=== PATIENT | female | born 1980 | race Caucasian/White ===

== ENCOUNTER → 2020-10-04 00:57 | Outpatient (CLI) | payer OTHER, SELFPAY ==
[2020-10-04 19:13] LABS: SARS-CoV-2 RNA PCR Negative
== END ==
PROVIDERS: PCP Physician Assistant; Visit Provider Internal Medicine Gastroenterology
DX: Z01.812 Encounter for preprocedural laboratory examination (principal); Z20.822 Contact with and (suspected) exposure to COVID-19
CPT/HCPCS: C9803; U0003; U0005

== ENCOUNTER 2020-10-07 01:03 | Day surgery (SDC) | payer OTHER, SELFPAY ==
[2020-09-19 12:00] VITALS: BMI 23.7
[2020-10-07 06:47] VITALS: BP 99/80; PULSE 76; RESP 18; TEMP 36.3; O2SAT 99; BMI 23.8
[2020-10-07] MEDS: LACTATED RINGERS 1,000 ML 150 ML IV CONT (06:58)
--- NOTE | 2020-10-07 07:22 | P.PNAN_ITS ---
Anes - Initial Pre Proc Eval Procedure: Operation Date: 10/07/20 08:00 Proposed Procedures p Colonoscopy - Charan Goncalves MD Date/Time: 10/07/20 07:22 Surgeon: Charan Goncalves MD Pre Op Diagnosis: Constipation Patient Data Age: 40 Gender: F Height: 5 ft 10 in Weight: 75.3 kg Last Vital Signs Temp 97.3 F L 10/07/20 06:47 Pulse 76 10/07/20 06:47 Resp 18 10/07/20 06:47 BP 99/80 L 10/07/20 06:47 Pulse Ox 99 10/07/20 06:47 Allergies Allergy/AdvReac Type Severity Reaction Status Date / Time No Known Allergies Allergy Verified 10/07/20 06:45 Home Medications Medication Instructions Recorded Confirmed Type escitalopram oxalate 10 mg PO DAILY 09/19/20 10/07/20 History Patient hx anesthesia problems: none Family hx anesthesia problems: none [facility] Past Medical History Medical History (Updated 08/28/20 @ 10:13 by MINDY Morgan) Anxiety Constipation Depression Social History Social History (Updated 08/28/20 @ 09:46 by Amirah Hill CMA) Smoking status: Never smoker Alcohol intake: current Drinks per week: 7 Alcohol use details: WEEK Substance use: never Substance use type: does not use Living arrangements: with family Gender identity (if verbalized by the patient): Female Spiritual care concerns: No Anes - Eval Final PreProcedure Day of Procedure 10/07/20 07:22 Patient weight: normal Heart: regular rate and rhythm Lungs: clear to auscultation Airway: Mallampati scale class II Neurological: alert and oriented Last oral intake: >/= 8 hours ASA classification: II Emergent: no Anesthetic plan: proceed Anesthesia type and monitoring: general GIVS and standard monitoring Informed Consent: The patient's anesthetic plan and its attendant risks and benefits were discussed with the patient/family/POA. Questions were solicited and answers provided to the satisfaction of the patient/family/POA.
--- NOTE | 2020-10-07 08:09 | PM.HPGS ---
History of Present Illness History of Present Illness Consent: Risks, benefits, and alternatives have been discussed and questions answered. Patient agrees to proceed with procedure. Chief complaint: Constipation Narrative: April Broussard is a 40 year old female with constipation Review of Systems Constitutional: Constitutional: Denies headache(s) and Denies weakness Eyes: Eyes: Denies blurry vision ENT: Reports Normal hearing present, Denies headache(s) and Denies neck pain Cardiovascular: Cardiovascular: Denies chest pain and Denies dyspnea Respiratory: Respiratory: Denies dyspnea Gastrointestinal: Gastrointestinal: Reports no additional gastrointestinal complaints Genitourinary: Genitourinary: Denies dysuria Musculoskeletal: Musculoskeletal: Denies neck pain Integumentary/Breasts: Skin/Breast: Denies dry skin Neurologic: Reports Normal hearing present, Denies headache(s) and Denies weakness Psychiatric: Psychiatric: Denies anxiety Endocrine: Endocrine: Denies change in body appearance Hematologic/Lymphatic: Hematologic/Lymphatic: Denies easy bleeding Allergic/Immunologic: Allergic/Immunologic: Denies urticaria PMF Past Medical History Medical History (Updated 08/28/20 @ 10:13 by HARINDER MorganC) Anxiety Constipation Depression Social History Social History (Updated 08/28/20 @ 09:46 by Amirah Hill CMA) Smoking status: Never smoker Alcohol intake: current Drinks per week: 7 Alcohol use details: WEEK Substance use: never Substance use type: does not use Living arrangements: with family Gender identity (if verbalized by the patient): Female Spiritual care concerns: No Meds Home Medications and Allergies Home Medications Medication Instructions Recorded Confirmed Type escitalopram oxalate 10 mg PO DAILY 09/19/20 10/07/20 History Allergies Allergy/AdvReac Type Severity Reaction Status Date / Time No Known Allergies Allergy Verified 10/07/20 06:45 Vital Signs Vital Signs - 24 hr 10/07/20 06:47 Temperature 97.3 F L Pulse Rate 76 Respiratory Rate 18 Blood Pressure 99/80 L Pulse Oximetry 99 Exam Const: General: comfortable and no acute distress HENMT: General nose exam: Normal nares present Eyes: General: appearance normal, both eyes and all related structures Neck: Neck: no JVD Resp: Auscultation: clear to auscultation bilaterally Cardio: Rate: regular rate Rhythm: regular rhythm GI: Inspection: non-distended GI Palp: Yes Soft to palpation Skin: General skin exam: normal color Neuro: General: gait normal Speech: normal speech Extrem: General: normal to inspection Psych: Mental Status: mental status grossly normal Assessment and Plan Assessment and plan (1) Constipation: Code(s): K59.00 - Constipation, unspecified Status: Acute Assessment and Plan: will proceed with colonoscopy
[2020-10-07 08:29] VITALS: BP 114/67; PULSE 76; RESP 18; O2SAT 100
[2020-10-07 08:39] VITALS: BP 108/70; PULSE 63; RESP 18; O2SAT 100
[2020-10-07 08:49] VITALS: BP 121/80; PULSE 66; RESP 18; O2SAT 100
== END 2020-10-07 09:27 | disposition home or self-care (01) ==
PROVIDERS: PCP Physician Assistant; Visit Provider Internal Medicine Gastroenterology
PROC: 0DJD8ZZ Inspection of Lower Intestinal Tract, Via Natural or Artificial Opening Endoscopic (ICD-10-PCS; CPT 45378; principal; 2020-10-07 08:00)
DX: K59.00 Constipation, unspecified (principal); F41.8 Other specified anxiety disorders
CPT/HCPCS: 45378; C9803; J2704; J7120; U0003; U0005

== ENCOUNTER 2023-12-27 15:44 | Outpatient (CLI) | payer OTHER, SELFPAY ==
--- NOTE | ~2023-12-27 | XR_ITS ---
EXAM: XR hip LT min 2V DATE: 12/27/2023 16:15 HISTORY: PAIN IN HIP, LBP, THORACIC PAIN . COMPARISON: None available. FINDINGS: Normal mineralization. No fracture or dislocation. No lytic or blastic lesion. Joint space s are maintained. Minimal ossification of the labral basis. No erosion or periosteal change. Soft tis sues within normal limits. IMPRESSION: No acute osseous finding in the left hip. Reviewed, dictated and finalized at location K.
--- NOTE | ~2023-12-27 | XR_ITS ---
EXAM: XR lumbar spine 2-3V DATE: 12/27/2023 16:14 HISTORY: PAIN IN HIP, LBP, THORACIC PAIN . COMPARISON: None available. FINDINGS: Mild scoliosis. Unfused posterior S1 arch. 5 nonrib-bearing lumbar-type vertebral bodies. P edicles intact. Normal vertebral body alignment. Vertebral body heights preserved. 2 mm retrolisthesi s at L5-S1. Mild disc space narrowing at L4-5 and L5-S1. Lower lumbar facet hypertrophy and sclerosis . No fracture or dislocation. IMPRESSION: Mild lower lumbar degenerative disc disease and facet arthropathy. Reviewed, dictated and finalized at location K.
--- NOTE | ~2023-12-27 | XR_ITS ---
EXAM: XR thoracic spine 3V DATE: 12/27/2023 16:15 HISTORY: PAIN IN HIP, LBP, THORACIC PAIN . COMPARISON: None available. FINDINGS: Vertebral body alignment intact. Vertebral body heights preserved. No disc space narrowing . No traumatic malalignment or fracture. Visualized lung parenchyma is clear. IMPRESSION: No acute fracture or traumatic malalignment detected in the thoracic spine. Reviewed, dictated and finalized at location K. IMPRESSION: No acute fracture or traumatic malalignment detected in the thoraci c spine.
== END 2023-12-27 15:45 ==
PROVIDERS: PCP Physician Assistant; Visit Provider Physician Assistant
DX: M25.552 Pain in left hip (principal); M51.36 Other intervertebral disc degeneration, lumbar region
CPT/HCPCS: 72072; 72100; 73502

== ENCOUNTER 2024-03-20 12:28 | Emergency (ER) | payer OTHER, SELFPAY ==
[2024-03-20 12:57] VITALS: BP 128/87; PULSE 85; RESP 16; TEMP 36.3; O2SAT 100
--- NOTE | 2024-03-20 13:50 | ED.URI ---
HPI - URI/Sore Throat General Chief Complaint: Upper Respiratory Infection Stated Complaint: Cough/ chest congestion Time Seen by Provider: 03/20/24 13:50 Source: patient, RN notes reviewed and old records reviewed Mode of arrival: ambulatory Limitations: no limitations History of Present Illness HPI Narrative: 44-year-old female to [facility] for complaint of cough, bilateral ear fullness, postnasal drainage for 2 weeks. Patient reports that symptoms are now affecting ability to sleep. Patient has attempted to treat at home with [id number] medications with little relief. Patient denies fever, sore throat, difficulty swallowing shortness of breath, headache, GI complaints. Patient able to tolerate fluids by mouth. Patient resting comfortably in exam room, appears acutely ill and tired. Respirations even and nonlabored. Patient able to speak in complete sentences without difficulty. Patient in no acute distress. Related Data Home Medications Medication Instructions Recorded Confirmed escitalopram oxalate 20 mg tablet 20 mg DIRECTED 03/20/24 03/20/24 Allergies Allergy/AdvReac Type Severity Reaction Status Date / Time No Known Allergies Allergy Verified 10/07/20 06:45 Review of Systems Review of Systems: All systems reviewed & are unremarkable except as noted in HPI and below Constitutional: Constitutional: Reports as per HPI and Reports difficulty sleeping Eyes: Eyes: Reports no additional eye complaints ENT: Reports as per HPI, Reports otalgia ( Bilateral ear fullness) and Reports post nasal drip Cardiovascular: Cardiovascular: Reports no additional cardiovascular complaints, Denies chest pain and Denies dyspnea Respiratory: Respiratory: Reports no additional respiratory complaints, Reports cough and Denies dyspnea Musculoskeletal: Musculoskeletal: Reports no additional musculoskeletal complaints Neurologic: Reports system reviewed and no additional complaints, except as documented Psychiatric: Psychiatric: Reports no additional psychiatric complaints [facility] Past Medical History Medical History Anxiety Bloating Constipation Depression Social History Social History Smoking status: Never smoker Alcohol intake: current Drinks per week: 7 Alcohol use details: WEEK Substance use: never Substance use type: does not use Living arrangements: with family Occupation/Education: occupation Gender identity (if verbalized by the patient): Female Sexual Orientation (if Verbalized by the Patient): Straight or Heterosexual Spiritual care concerns: No Comments At the time of my signature, I reviewed and agree with the nursing past medical, surgical, social, and family history. There is no relevant family history pertinent to the patient complaint. Exam Const: General: cooperative, no acute distress, well developed, alert, ill appearing acutely, tired appearing, uncomfortable, well groomed and well nourished Nutritional Appearance: well nourished Orientation/consciousness: patient oriented x3 Limitations: no limitations HENMT: Head: normal to inspection Ears: external ears normal and TM abnormal with fluid behind the TM bilateral and diffuse Face/Nose/Sinus: Normal external nose present, Abnormal mucous membranes and turbinates present boggy bilateral and erythematous bilateral, normal facial exam, No erythema and No edema Face and sinus: normal facial exam, no erythema and no edema Mouth: Yes Normal oral and palatal mucosa present Throat: posterior oropharynx abnormal erythema and postnasal drainage Eyes: General: appearance normal, both eyes and all related structures Neck: Neck: normal visual inspection, full ROM and no meningeal signs Lymphatic: no lymphadenopathy noted and no lymphedema noted Chest: Chest palpation & inspection: normal inspection
== END 2024-03-20 14:06 | disposition home or self-care (01) ==
PROVIDERS: Emergency Provider Nurse Practitioner Family; PCP Physician Assistant
DX: J32.9 Chronic sinusitis, unspecified (principal); F41.9 Anxiety disorder, unspecified; F32.A Depression, unspecified
CPT/HCPCS: 99213; G0463

== ENCOUNTER 2024-03-23 07:37 | Outpatient (CLI) | payer OTHER, SELFPAY ==
--- NOTE | ~2024-03-23 | XR_ITS ---
EXAMINATION: XR chest 2V 03/23/2024 07:58 INDICATION: Cough PROCEDURE: 2 view chest COMPARISON: No prior studies for comparison. FINDINGS: The lungs are clear. The cardiomediastinal silhouette is within normal limits. There are no pleural effusions. There is no pneumothorax suspected. IMPRESSION: 1: NO ACUTE CARDIOPULMONARY DISEASE. Reviewed, dictated and finalized at location B.
== END 2024-03-23 07:38 | disposition home or self-care (01) ==
PROVIDERS: PCP Physician Assistant; Visit Provider Physician Assistant
DX: R05.9 Cough, unspecified (principal)
CPT/HCPCS: 71046

== ENCOUNTER 2025-01-30 08:41 | Outpatient (CLI) | payer OTHER, SELFPAY ==
--- NOTE | ~2025-01-30 | MM_ITS ---
EXAMINATION: MM screening jessica BI w nate HISTORY: Screening TECHNIQUE: Craniocaudal and mediolateral oblique 3-D tomosynthesis images were obtained and synthetic 2-D images were generated. CAD analysis was submitted and interpreted. COMPARISON: No prior mammogram is available for comparison at this institution. BREAST PARENCHYMAL COMPOSITION: Dense: The breasts are heterogeneously dense, which may obscure small masses FINDINGS: There is no evidence of suspicious mass, calcification, or architectural distortion to sugg est malignancy in either breast. There has been no suspicious interval change. IMPRESSION: 1. No mammographic evidence of malignancy. 2. Recommend routine screening mammography in one year. BI-RADS Category 1: Negative Reviewed, dictated and finalized at location B.
--- OUTSIDE RECORDS SUMMARY | 2025-01-30 08:49 | XMS_ITS | Clinical Summary ---
Author Organization [facility] Address [facility] [place] [address] Care Team Providers Care Sap Bobj Developer Name Role Phone Unavailable Primary Care Provider Unavailabl e Source Comments [facility],non-owned Affiliates and Associated Physician Practices is amultiple site organization consisting of ambulatory clinics and hospital sitesin [place], [place], [place] and [place]. This disclosure is being madepursuant to the Care Everywhere program and may not contain all information available regarding this patient. Last updated 18.[facility] Allergies No known active allergies Medications * Be aware that medications may not be up to date on this document. Alwaysverify current medications with the patient. escitalopram (LEXAPRO) 10 MG tablet Take 10 mg by mouth once daily Active drospirenone-et hinyl estradiol (BERNABE) 3-0.02 MG tablet Take 1 tablet by mouth once daily Active Fexofenadine HCl (SCAR PO) Active Mometasone Furoate (NASONEX NA) Active benzonatate (TESSALON) 200 MG capsuleIndicati ons:Nasopharyng itis acute,Cough Take 1 capsule by mouth 3 times daily as needed for Cough 30 capsule 06/30/2017 Active methylPREDNISol one (MEDROL DOSEPAK) 4 MG tabletIndicatio ns:Nasopharyngi tis acute,Cough Take by mouth as directed Use dose pack of 4mg tabs, start 24 mg/day, taper by 4mg/day over 6 days per pkg instructions. Take with food. 1 Each 06/30/2017 Active Social History Tobacco Use Types Packs/Day Years Used Date Smoking Tobacco: Never Smokeless Tobacco: Never Comments No Sex and Gender Information Value Date Recorded Sex Assigned at Not on file Legal Sex Female 7:27 AM SIGNS CLEANER Gender Identity Not on file Sexual Orientation Not on file Last Filed Vital Signs Vital Sign Reading Time Taken Comments Blood Pressure 100/74 06/30/2017 11:17 AM SIGNS CLEANER Pulse 85 06/30/2017 11:17 AM SIGNS CLEANER Temperature 36.7 C (98 F) 06/30/2017 11:17 AM SIGNS CLEANER Respiratory Rate 16 06/30/2017 11:17 AM SIGNS CLEANER Oxygen Saturation 98% 06/30/2017 11:17 AM SIGNS CLEANER Inhaled Oxygen Concentration - - Weight 72.6 kg (160 lb) 06/30/2017 11:17 AM SIGNS CLEANER Height 177.8 cm (5' 10) 06/30/2017 11:17 AM SIGNS CLEANER Body Mass Index 22.96 06/30/2017 11:17 AM SIGNS CLEANER Plan of Treatment Health Maintenance Due Date Last Done Comments LIPID TESTING 1981 MAMMOGRAM 1981 HIV SCREENING 01/24/1996 HEPATITIS C SCREENING 01/19/1999 DTAP/TDAP/TD VACCINES (1 - Tdap) 01/24/2000 HEPATITIS B VACCINE (1 of 3 - 19+ 3-dose series) 01/24/2000 HPV VACCINE (1 - 3-dose SCDM series) 01/24/2008 COVID-19 VACCINE (1 - 2023-2 5 season) 2024 DEPRESSION SCREENING 07/18/2024 INFLUENZA VACCINE (#1) 2025 ZOSTER VACCINE (1 of 2) 2031 HIB VACCINE Aged Out No longer eligi ble based on patient's age to complete this topic MENINGOCOCCAL (Group B) VACC INE SHARED DECISION-MAKING Aged Out No longer eligibl e based on patient's age to complete this topic MENINGOCOCCAL GROUPS A/C/Y/W VACCINE Aged Out No longer eligible b ased on patient's age to complete this topic PNEUMOCOCCAL VACCINE Aged Out No long er eligible based on patient's age to complete this topic Insurance [facility] Member Subscriber Plan / Payer (Ef fective 2017-Present) Name:April Broussard Relation to Subscriber:Self Name:April Broussard Payer ID:[id number] (NAIC) Type:[facility] [place] Address: [place] [phone]
--- OUTSIDE RECORDS SUMMARY | 2025-01-30 08:49 | XMS_ITS | Clinical Summary ---
Author Organization [facility] Address [address] [place] [id number] Care Team Providers Care Bulk Plant Supervisor Name Role Phone Svetlana Peters Primary Care Pr ovider Allergies No known active allergies Medications escitalopram (LEXAPRO) 20 mg tablet Take 1 tablet (20 mg total) by mouth daily 08/18/2023 Active testosterone micronized, bulk, 100 % powder 2 07/27/2023 Active progesterone (PROMETRIUM) 200 mg capsule Take 1 capsule (200 mg total) by mouth daily Active Active Problems Problem Noted Date Diagnosed Date Rash 05/03/2017 Benign neoplasm of skin of trunk 05/03/2017 Hay fever 01/14/2015 Allergic rhinitis due to pollen 01/14/2015 Family History Medical History Relation Name Comments Colonic polyp Mother Family history of colonic polyps - (Added by TW Conv) Relation Name Status Comments Mother Social History Tobacco Use Types Packs/Day Years Used Date Smoking Tobacco: Never Comments Unknown Sex and Gender Information Value Date Recorded Sex Assigned at Not on file Legal Sex Female 6:26 AM PARACHUTE OFFICER Gender Identity Not on file Sexual Orientation Not on file Obstetrics History Last Filed Vital Signs Vital Sign Reading Time Taken Comments Blood Pressure 117/78 09/07/2023 2:05 PM PARACHUTE OFFICER Pulse 69 09/07/2023 2:05 PM PARACHUTE OFFICER Temperature 36.8 C (98.3 F) 09/07/2023 2:05 PM PARACHUTE OFFICER Respiratory Rate 18 09/07/2023 2:05 PM PARACHUTE OFFICER Oxygen Saturation 97% 09/07/2023 2:05 PM PARACHUTE OFFICER Inhaled Oxygen Concentration - - Weight 80.7 kg (177 lb 14.4 oz) 09/07/2023 2:05 PM PARACHUTE OFFICER Height 177.8 cm (5' 10) 09/07/2023 2:05 PM PARACHUTE OFFICER Body Mass Index 25.53 09/07/2023 2:05 PM PARACHUTE OFFICER Plan of Treatment Health Maintenance Due Date Last Done Comments Breast Cancer Screening-Mammogram 1981 Cervical Cancer Screening 1981 Depression Screening 1981 Hepatitis C Screening 1981 DTaP/Tdap/Td Vaccine (1 - Tdap) 01/24/1992 Varicella Vaccines (1 of 2 - 13+ 2-dose series) 1994 Hepatitis B Screening 1999 Regular Well Visit/Exam 18-64 1999 Covid-19 Vaccine ( season) 2024 06/21/2023, 10/30/2022, 06/24/2021, Additional history exists Influenza Vaccine (#1) 2025 , 05/16/2021, 05/06/2018, Additional history exists HPV Vaccines Aged Out No longer eligi ble based on patient's age to complete this topic Pneumococcal vaccine <65 Aged Out No longer eligible based on patient's age to complete this [place] [id number] [facility] CHOICE PLUS [facility] CHOICE PLUS Care Teams Bulk Plant Supervisor Relationship Specialty Start Date End Date Svetlana Peters PA PCP - General Physician Fisher Quahog 09/07/23
--- OUTSIDE RECORDS SUMMARY | 2025-01-30 08:49 | XMS_ITS | Data Portability ---
Author Organization [facility] Address [address] [place] [address] Care Team Providers Care Bindery Chief Name Role Phone EZIOJUANPABLO GAUTAM Primary Care Provider Unavailab le Assessment No assessment recorded. Plan of Treatment Reminders Order Date Submit Date Provider Last Modified By Organization Details Last Modified Time Details Appointments None recorded. Lab TSH + free T4, serum 2023 024 YADI Montes, [address], [place], [address], 4 15:11:09 T3, free, serum or plasma 2023 024 YADI Montes, [address], [place], [address], 4 15:11:14 thyroperox idase Ab, serum 2023 024 YADI Montes, [address], [place], [address], 4 15:11:13 lipid panel, serum 2023 024 YADI Montes, [address], [place], [address], 4 15:11:09 CMP, serum or plasma 2023 024 YADI Montes, [address], [place], [address], 4 15:11:10 CBC w/ auto diff 2023 024 ANGIE [facility], [address], [place], [address], 4 15:11:12 vitamin B12 + folate, serum or blood 2023 024 [facility], [address], [place], [address], 4 15:11:11 HbA1c (hemoglobi n A1c), blood 2023 024 [facility], [address], [place], [address], 4 15:11:12 Referral None recorded. Procedures None recorded. Surgeries None recorded. Imaging XR, lumbosacra l spine 2023 024 [facility], [address], [place], [address], 4 15:30:45 XR, hip, unilateral , 2 or 3 view 2023 024 [facility], [address], [place], [address], 4 15:30:32 XR, thoracic spine 2023 024 [facility], [address], [place], [address], 4 23:47:58 Medication Orders Zithromax Z-Damon 250 mg tablet 2024 025 [facility] [address], [address] [place], [address], 5 09:53:44 albuterol sulfate HFA 90 mcg/actuat ion aerosol inhaler 2024 025 [facility] [address], [address] [facility], [place], [address], 5 09:53:46 prednisone 20 mg tablet 2024 025 [facility] [address], [address] [facility], [place], [address], 5 05:02:07 hydrocodon e 10 mg-chlorph eniramine 8 mg/5 mL oral susp extend.rel 12hr 2023 024 [email or web address] [address], [place], [address], 5 16:18:53 albuterol sulfate HFA 90 mcg/actuat ion aerosol inhaler 2023 024 [email or web address] [facility] [address], [address] [facility], [place], [address], 5 09:49:22 levofloxac in 500 mg tablet 2023 025 [facility] [address], [address], [place], [address], 5 09:50:54 prednisone 50 mg tablet 2023 024 [facility] [address], [address], [place], [address], 4 15:23:15 cyclobenza harrison 10 mg tablet 2023 024 [facility] [address], [address], [place], [address], 4 15:23:06 hydrocodon e 5 mg-acetami nophen 325 mg tablet 2023 024 [facility] [address], [address], [place], [address], 4 15:42:50 escitalopr am 20 mg tablet 2023 024 [facility] [address], [address], [place], [address], 16:19:00 Patient TargetsNo targets recorded. Patient Instructions Encounter Date Encounter Id Patient Instructions Last Modified By Organization Details Last Modified Time 12/31/2024 [id number] A healthy lifestyle: care instructions [email or web address] Not available 12/31/2024 16:38:26 Reason for Referral None Reported. Results Created Date Observation Date Name Description Value Unit Range Abnormal Flag Note LastModifiedBy Organization Detail LastModifiedTime 12/13/19 24 12/14/2023 LIPID PANEL W/ CHOL/ HDL RATIO cholesterol, total 198 mg/dL 100-19 9 Not Available [facility] ([facility]) [address] [place], [address], 12/14/2023 15:11:09 12/13/19 24 12/14/2023 LIPID PANEL W/ CHOL/ HDL RATIO triglyceride s 122 mg/dL 0-149 Not Available [facility] ([facility]) [address] [place], [address], 12/14/2023 15:11:09 12/13/19 24 12/14/2023 LIPID PANEL W/ CHOL/ HDL RATIO HDL cholesterol 61 mg/dL >39 Not Available [facility] ([facility]) [address] [place], [address], 12/14/2023 15:11:09 12/13/19 24 12/14/2023 LIPID PANEL W/ CHOL/ HDL RATIO VLDL cholesterol annika 22 mg/dL 5-40 Not Available [facility] ([facility]) [address] [place], [address], 12/14/2023 15:11:09 12/13/19 24 12/14/2023 LIPID PANEL W/ CHOL/ HDL RATIO LDL chol calc (nih) 115 mg/dL 0-99 above high normal Not Available [facility] ([facility]) [address] [place], [address], 12/14/2023 15:11:09 12/13/19 24 12/14/2023 LIPID PANEL W/ CHOL/ HDL RATIO T. chol/HDL ratio 3.2 ratio 0.0-4. 4 T. Chol/ HDL Ratio Men Women 1/2 Avg.R isk 3.4 3.3 Avg.R isk 5.0 4.4 2X Avg.R isk 9.6 7.1 3X Avg.R isk 23.4 11.0 Not Available [facility] ([facility]) [address] [place], [address], 12/14/2023 15:11:09 12/13/19 24 12/14/2023 TSH+F REE T4 TSH 2.400 uIU/m L 0.450- 4.500 Not Available [facility] ([facility]) [address] [place], [address], 12/14/2023 15:11:09 12/13/19 24 12/14/2023 TSH+F REE T4 T4,free(dire ct) 0.84 NG/dL 0.82-1 .77 Not Available [facility] ([facility]) [address] [place], [address], 12/14/2023 15:11:09 12/13/19 24 12/14/2023 COMP. METAB OLIC PANEL (14) glucose 106 mg/dL 70-99 above high normal Not Available [facility] ([facility]) [address] [place], [address], 12/14/2023 15:11:10 12/13/19 24 12/14/2023 COMP. METAB OLIC PANEL (14) BUN 9 mg/dL 6-24 Not Available [facility] ([facility]) [address] [place], [address], 12/14/2023 15:11:10 12/13/19 24 12/14/2023 COMP. METAB OLIC PANEL (14) creatinine 0.68 mg/dL 0.57-1 .00 Not Available [facility] ([facility]) [address] [facility], [place], [address], 12/14/2023 15:11:10 12/13/19 24 12/14/2023 COMP. METAB OLIC PANEL (14) eGFR 111 mL/mi n/1.7 3 >59 Not Available [facility] ([facility]) [address] [facility], [place], [address], 12/14/2023 15:11:10 12/13/19 24 12/14/2023 COMP. METAB OLIC PANEL (14) BUN/creatini ne ratio 13 9-23 Not Available [facility] ([facility]) [address] [facility], [place], [address], 12/14/2023 15:11:10 12/13/19 24 12/14/2023 COMP. METAB OLIC PANEL (14) sodium 136 mmol/ L 134-14 4 Not Available [facility] ([facility]) [address] [facility], [place], [address], 12/14/2023 15:11:10 12/13/19 24 12/14/2023 COMP. METAB OLIC PANEL (14) potassium 4.3 mmol/ L 3.5-5. 2 Not Available [facility] ([facility]) [address] [facility], [place], [address], 12/14/2023 15:11:10 12/13/19 24 12/14/2023 COMP. METAB OLIC PANEL (14) chloride 103 mmol/ L 96-106 Not Available [facility] ([facility]) [address] [facility], [place], [address], 12/14/2023 15:11:10 12/13/19 24 12/14/2023 COMP. METAB OLIC PANEL (14) carbon dioxide, total 22 mmol/ L Not Available [facility] ([facility]) [address] [place], [address], 12/14/2023 15:11:10 12/13/19 24 12/14/2023 COMP. METAB OLIC PANEL (14) calcium 8.9 mg/dL 8.7-10 .2 Not Available [facility] ([facility]) [address] [facility], [place], [address], 12/14/2023 15:11:10 12/13/19 24 12/14/2023 COMP. METAB OLIC PANEL (14) protein, total 6.6 g/dL 6.0-8. 5 Not Available [facility] ([facility]) [address] [facility], [place], [address], 12/14/2023 15:11:10 12/13/19 24 12/14/2023 COMP. METAB OLIC PANEL (14) albumin 4.1 g/dL 3.9-4. 9 Not Available [facility] ([facility]) [address] [place], [address], 12/14/2023 15:11:10 12/13/19 24 12/14/2023 COMP. METAB OLIC PANEL (14) globulin, total 2.5 g/dL 1.5-4. 5 Not Available [facility] ([facility]) [address] [place], [address], 12/14/2023 15:11:10 12/13/19 24 12/14/2023 COMP. METAB OLIC PANEL (14) A/G ratio 1.6 1.2-2. 2 Not Available [facility] ([facility]) [address] [place], [address], 12/14/2023 15:11:10 12/13/19 24 12/14/2023 COMP. METAB OLIC PANEL (14) bilirubin, total 0.4 mg/dL 0.0-1. 2 Not Available [facility] ([facility]) [address] [facility] [place], [address], 12/14/2023 15:11:10 12/13/19 24 12/14/2023 COMP. METAB OLIC PANEL (14) alkaline phosphatase 72 IU/L 44-121 Not Available [facility] ([facility]) [address] [facility] [place], [address], 12/14/2023 15:11:10 12/13/19 24 12/14/2023 COMP. METAB OLIC PANEL (14) AST (SGOT) 16 IU/L 0-40 Not Available [facility] ([facility]) [address] [facility] [place], [address], 12/14/2023 15:11:10 12/13/19 24 12/14/2023 COMP. METAB OLIC PANEL (14) ALT (SGPT) 14 IU/L 0-32 Not Available [facility] ([facility]) [address] [facility], [place], [address], 12/14/2023 15:11:10 12/13/19 24 12/14/2023 VITAM IN B12 AND FOLAT E vitamin B12 619 pg/mL 232-12 45 Not Available [facility] ([facility]) [address] [facility] [place], [address], 12/14/2023 15:11:11 12/13/19 24 12/14/2023 VITAM IN B12 AND FOLAT E folate (folic acid), serum 16.2 NG/mL >3.0 A serum folat e lorie ntrat ion of less than 3.1 ng/mL is consi dered to repre sent clini annika defic iency . Not Available [facility] ([facility]) [address] [facility] [place], [address], 12/14/2023 15:11:11 12/13/19 12/14/2023 HEMOG LOBIN A1C hemoglobin A1C 5.2 % 4.8-5. 6 Predi abete s: 5.7 - 6.4 Diabe bettie: >6.4 Glyce alyssa contr ol for adult s with diabe bettie: <7.0 Not Available [facility] ([facility]) [address] [facility], [place], [address], 12/14/2023 15:11:12 12/13/19 24 12/14/2023 CBC WITH DIFFE RENTI AL/PL ATELE T WBC 6.0 x10e3 /uL 3.4-10 .8 Not Available [facility] ([facility]) [address] [place], [address], 12/14/2023 15:11:12 12/13/19 24 12/14/2023 CBC WITH DIFFE RENTI AL/PL ATELE T RBC 4.66 x10e6 /uL 3.77-5 .28 Not Available [facility] ([facility]) [address] [facility], [place], [address], 12/14/2023 15:11:12 12/13/19 24 12/14/2023 CBC WITH DIFFE RENTI AL/PL ATELE T hemoglobin 13.3 g/dL 11.1-1 5.9 Not Available [facility] ([facility]) [address] [place], [address], 12/14/2023 15:11:12 12/13/19 24 12/14/2023 CBC WITH DIFFE RENTI AL/PL ATELE T hematocrit 41.5 % 34.0-4 6.6 Not Available [facility] ([facility]) [address] [place], [address], 12/14/2023 15:11:12 12/13/19 24 12/14/2023 CBC WITH DIFFE RENTI AL/PL ATELE T MCV 89 fL 79-97 Not Available [facility] ([facility]) [address] [place], [address], 12/14/2023 15:11:12 12/13/19 24 12/14/2023 CBC WITH DIFFE RENTI AL/PL ATELE T MCH 28.5 pg 26.6-3 3.0 Not Available [facility] ([facility]) [address] [facility], [place], [address], 12/14/2023 15:11:12 12/13/19 24 12/14/2023 CBC WITH DIFFE RENTI AL/PL ATELE T MCHC 32.0 g/dL 31.5-3 5.7 Not Available [facility] ([facility]) [address] [facility], [place], [address], 12/14/2023 15:11:12 12/13/19 24 12/14/2023 CBC WITH DIFFE RENTI AL/PL ATELE T RDW 12.7 % 11.7-1 5.4 Not Available [facility] ([facility]) [address] [facility], [place], [address], 12/14/2023 15:11:12 12/13/19 24 12/14/2023 CBC WITH DIFFE RENTI AL/PL ATELE T platelets 200 x10e3 /uL 150-45 0 Not Available [facility] ([facility]) [address] [facility], [place], [address], 12/14/2023 15:11:12 12/13/19 24 12/14/2023 CBC WITH DIFFE RENTI AL/PL ATELE T neutrophils 54 % notest ab. Not Available [facility] ([facility]) [address] [facility], [place], [address], 12/14/2023 15:11:12 12/13/19 24 12/14/2023 CBC WITH DIFFE RENTI AL/PL ATELE T lymphs 38 % notest ab. Not Available [facility] ([facility]) [address] [place], [address], 12/14/2023 15:11:12 12/13/19 24 12/14/2023 CBC WITH DIFFE RENTI AL/PL ATELE T monocytes 6 % notest ab. Not Available [facility] ([facility]) [address] [facility], [place], [address], 12/14/2023 15:11:12 12/13/19 24 12/14/2023 CBC WITH DIFFE RENTI AL/PL ATELE T eos 1 % notest ab. Not Available [facility] ([facility]) [address] [facility], [place], [address], 12/14/2023 15:11:12 12/13/19 24 12/14/2023 CBC WITH DIFFE RENTI AL/PL ATELE T basos 1 % notest ab. Not Available [facility] ([facility]) [address] [facility], [place], [address], 12/14/2023 15:11:12 12/13/19 24 12/14/2023 CBC WITH DIFFE RENTI AL/PL ATELE T neutrophils (absolute) 3.3 x10e3 /uL 1.4-7. 0 Not Available [facility] ([facility]) [address] [facility], [place], [address], 12/14/2023 15:11:12 12/13/19 24 12/14/2023 CBC WITH DIFFE RENTI AL/PL ATELE T lymphs (absolute) 2.3 x10e3 /uL 0.7-3. 1 Not Available [facility] ([facility]) [address] [facility], [place], [address], 12/14/2023 15:11:12 12/13/19 24 12/14/2023 CBC WITH DIFFE RENTI AL/PL ATELE T monocytes(ab solute) 0.3 x10e3 /uL 0.1-0. 9 Not Available [facility] ([facility]) [address] [facility], [place], [address], 12/14/2023 15:11:12 12/13/19 24 12/14/2023 CBC WITH DIFFE RENTI AL/PL ATELE T eos (absolute) 0.1 x10e3 /uL 0.0-0. 4 Not Available [facility] ([facility]) [address] [facility], [place], [address], 12/14/2023 15:11:12 12/13/19 24 12/14/2023 CBC WITH DIFFE RENTI AL/PL ATELE T baso (absolute) 0.0 x10e3 /uL 0.0-0. 2 Not Available [facility] ([facility]) [address] [facility], [place], [address], 12/14/2023 15:11:12 12/13/19 24 12/14/2023 CBC WITH DIFFE RENTI AL/PL ATELE T immature granulocytes 0 % notest ab. Not Available [facility] ([facility]) [address] [facility], [place], [address], 12/14/2023 15:11:12 12/13/19 24 12/14/2023 CBC WITH DIFFE RENTI AL/PL ATELE T immature grans (abs) 0.0 x10e3 /uL 0.0-0. 1 Not Available [facility] ([facility]) [address] [facility], [place], [address], 12/14/2023 15:11:12 12/13/19 24 12/14/2023 THYRO ID ANTIB ODIES thyroid peroxidase (tpo) Ab <9 IU/mL 0-34 Not Available [facility] ([facility]) [address] [place], [address], 12/14/2023 15:11:13 12/13/19 24 12/14/2023 THYRO ID ANTIB ODIES thyroglobuli n antibody <1.0 IU/mL 0.0-0. 9 Thyro globu paradise Antib yanci measu red by Eliazar chi Coult er Metho dolog y It shoul d be noted that the prese nce of thyro globu paradise antib odies may not be patho genic nor diagn ostic , espec ially at very low level s. The assay toby actur er has found that four perce nt of indiv idual s witho ut evide nce of thyro id disea se or autoi mmuni ty will have posit yanet TgAb level s up to 4 IU/mL . Not Available [facility] ([facility]) [address] [facility], [place], [address], 12/14/2023 15:11:13 12/13/19 24 12/14/2023 TRIIO DOTHY MARLA E (T3), FREE triiodothyro nine (T3), free 2.8 pg/mL 2.0-4. 4 Not Available [facility] ([facility]) [address] [facility], [place], [address], 12/14/2023 15:11:14 12/28/19 24 12/27/2023 XR, thora cic spine No observ ation record ed. YADI [facility] [address], [place], [address], 01/03/2024 15:29:47 03/23/20 24 03/23/2024 XR, chest , 2 view No observ ation record ed. [email or web address] [facility] [address], [place], [address], 04/02/2024 16:15:29 Result Notes None recorded. Problems Name Problem SNOMED Code Status Onset Date Resolution Date Notes Provider Name and Address Organization Details Recorded Time Mixed anxiety and depressive disorder 248115423 Active 024 EVELIN Ortega Attn: [address] [facility] [address], [place], [address] , [facility] - [facility] 00:43:26 Body mass index 20-24 - normal 016091182 Active 025 EVELIN Ortega Attn: [address], [place], [address], [facility] 5 11:58:28 Long-term drug therapy Active 025 EVELIN Ortega Attn: [address], [place], [address], [facility] 5 09:50:28 Family history of cancer of colon 550042584 Active 025 EVELIN Ortega Attn: [address] [facility], [place], [address], [facility] 5 11:58:22 Problem Notes None recorded. Procedures Surgical History Date Name Laterality Status Provider Name and Address Organization Details Recorded Time section completed Shady Allison MA [facility] 11/17/2023 11:57:53 Imaging Results None recorded. Procedure Notes None recorded. Medical Equipment None Reported. Allergies No known drug allergies Medications Name Sig Start Date Stop Date Status Note LastModified by Organization Details LastModified Time cyclobenz aprine 10 mg tablet TAKE 1 TABLET BY MOUTH THREE TIMES DAILY NEEDED 04/02 completed Not Available Not Available Not Available azithromy paco 250 mg tablet TAKE 2 TABLETS BY MOUTH ON DAY 1, AND THEN TAKE 1 TABLET BY MOUTH ONCE A DAY ON DAY 2 THROUGH DAY 5 01/21 completed Not Available Not Available Not Available hydrocodo ne 5 mg-acetam inophen 325 mg tablet TAKE 1 TABLET BY MOUTH EVERY 6 HOURS NEEDED FOR ACUTE BACK PAIN 04/02 completed Not Available Not Available Not Available prednison e 20 mg tablet Take 2 tablets every day by oral route for 5 days. 01/12 completed Not Available Not Available Not Available ciproflox acin 500 mg tablet TAKE 1 TABLET BY MOUTH EVERY 12 HOURS 11/16 completed Not Available Not Available Not Available amoxicill in 875 mg tablet TAKE 1 TABLET BY MOUTH EVERY 12 HOURS 04/02 completed pt finished on tuesday Not Available Not Available Not Available prednison e 50 mg tablet Take 1 tablet every day by oral route for 5 days. 04/02 completed Not Available Not Available Not Available levofloxa paco 500 mg tablet TAKE 1 TABLET BY MOUTH EVERY 24 HOURS WITH A MEAL 01/21 completed Not Available Not Available Not Available hydrocodo ne 10 mg-chlorp heniramin e 8 mg/5 mL oral susp extend.re l 12hr TAKE 5 ML BY MOUTH EVERY 12 HOURS NEEDED FOR COUGH 12/31 completed Not Available Not Available Not Available albuterol sulfate HFA 90 mcg/actua tion aerosol inhaler INHALE 2 PUFFS BY MOUTH EVERY 4 TO 6 HOURS NEEDED 01/21 completed Not Available Not Available Not Available progester one micronize d 100 mg capsule TAKE 1 CAPSULE BY MOUTH NIGHTLY active Not Available Not Available No t Available escitalop fidelia 20 mg tablet Take 1 tablet every day by oral route for 90 days. active Not Available Not Available No t Available testoster one active cream Not Available Not Available Not Available progester one 75mg daily 04/02 completed Not Available Not Available Not Available semagluti de (weight loss) 0.25 mg/0.5 mL subcutane ous pen injector Inject by subcutan eous route. active Not Available Not Available No t Available Vitals Date Recorded Systolic And Diastolic Provider Name and Address Organization Details Last Updated DateTime 11/17/2023 108/80 mm[Hg] EVELIN Ortega Attn: [address] [place], [address], [facility] 11/17/2023 11:38:02 Date Recorded Body height Body mass index (BMI) Body weight Respiratory rate Oxygen saturation Oxygen saturation in Arterial blood by Pulse oximetry Heart rate Provider Name and Address Organization Details Last Updated DateTime 4 180.34 cm 25.1 kg/m2 73157.6 3 g 18 /min 97 % 97 % 85 /min Shady Allison MA [facility] 11:10:20 Date Recorded Body height Body mass index (BMI) Body weight Respiratory rate Oxygen saturation Oxygen saturation in Arterial blood by Pulse oximetry Heart rate Systolic And Diastolic Provider Name and Address Organization Details Last Updated DateTime 4 180.34 cm 25.2 kg/m2 64521.4 2 g 18 /min 99 % 99 % 66 /min 118/82 mm[Hg] Shady Allison MA [facility] 4 15:58:12 Date Recorded Systolic And Diastolic Provider Name and Address Organization Details Last Updated DateTime 12/31/2024 110/80 mm[Hg] EVELIN Ortega Attn: [address] [place], [address], [facility] 12/31/2024 16:38:36 Date Recorded Body height Oxygen saturation Oxygen saturation in Arterial blood by Pulse oximetry Heart rate Body mass index (BMI) Body weight Body temperature Systolic And Diastolic Provider Name and Address Organization Details Last Updated DateTime 5 180.34 cm 97 % 97 % 75 /min 24.5 kg/m2 00056.2 6 g 98.3 [degF] 122/82 mm[Hg] Shady Allison MA [facility] 5 16:22:37 Date Recorded Systolic And Diastolic Provider Name and Address Organization Details Last Updated DateTime 01/21/2025 110/74 mm[Hg] EVELIN Ortega Attn: [address] [place], [address], [facility] 01/21/2025 11:58:39 Date Recorded Body height Body mass index (BMI) Body weight Respiratory rate Oxygen saturation Oxygen saturation in Arterial blood by Pulse oximetry Heart rate Systolic And Diastolic Provider Name and Address Organization Details Last Updated DateTime 5 180.34 cm 23.2 kg/m2 07669.3 3 g 18 /min 97 % 97 % 67 /min 122/80 mm[Hg] Shady Allison MA [facility] 5 11:36:55 Date Recorded Body height Body mass index (BMI) Body weight Respiratory rate Oxygen saturation Oxygen saturation in Arterial blood by Pulse oximetry Heart rate Systolic And Diastolic Provider Name and Address Organization Details Last Updated DateTime 4 180.34 cm 25.9 kg/m2 32254.0 3 g 18 /min 98 % 98 % 74 /min 126/88 mm[Hg] Shady Allison MA [facility] 4 15:24:57 Social History Question Answer Notes LastModified by Organizat ion Details LastModified Time Tobacco Smoking Status Never Smoker Shady Allison MA [facility] [place] [facility] 11/17/2023 11:09:05 Do You Have An Advance Directive? No Information not available 12/31/2024 Are You Blind Or Do You Have Difficulty Seeing? No CONTACTS/ GLASSES Information not available 11/17/2023 What Is Your Level Of Caffeine Consumption? Moderate Information not available 11/17/2023 In The 14 Days Before Symptom Onset, Have You Had Close Contact With A Laboratory-confir med COVID-19 While That Case Was Ill? No Information not available 11/15/2023 In The 14 Days Before Symptom Onset, Have You Had Close Contact With A Person Who Is Under Investigation For COVID-19 While That Person Was Ill? No Information not available 11/15/2023 Have You Been To An Area Known To Be High Risk For COVID-19? No Information not available 11/15/2023 Are You Deaf Or Do You Have Serious Difficulty Hearing? No Information not available 11/17/2023 What Type Of Diet Are You Following? REGULAR Information not available 11/17/2023 Are There Any Guns Present In Your Home? No Information not available 11/15/2023 What Was The Date Of Your Most Recent Tobacco Screening? 01/21/2025 Information not available 01/21/2025 What Is Your Relationship Status? Information not available 11/17/2023 Do You Use Your Seat Belt Or Car Seat Routinely? Yes Information not available 11/15/2023 Do You Have Smoke And Carbon Monoxide Detectors In Your Home? No Information not available 11/15/2023 Do You Use Sunscreen Routinely? No Information not available 11/15/2023 Has Tobacco Cessation Counseling Been Provided? Yes Information not available 11/15/2023 On What Date Was Tobacco Cessation Counseling Provided? 01/21/2025 Information not available 01/21/2025 Sex: Female Functional Status Question Answer Note LastModified by Organizat ion Details LastModified Time Do you use any illicit or recreational drugs? No Information not available 11/17/2023 Do you or have you ever used any other forms of tobacco or nicotine? No Information not available 11/17/2023 What is your level of alcohol consumption? Occasional Information not available 11/17/2023 Are you currently employed? Yes Information not available 11/17/2023 Are you able to care for yourself? 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 Moderate Information not available 11/17/2023 Mental Status None recorded. Family History Relationship Description Onset Age of this Age Resolved Age Notes LastModified by Organization Details LastModified Time Mother Hypertensive disorder tcarterma Not available 2023 11:58:01 Medical History Condition Response Coronary Artery Disease N Other N High Blood Pressure N Atrial Fibrillation N Kidney or Bladder Problems N Thyroid Problems N GI Problems Y Depression Y COPD N Blood Clots N Skin Problems N Anemia N Heart Attack (NE) N Anxiety Disorder Y Diabetes N Muscle, Joint, or Bone Problems N Seizures/Epilepsy N Acid Reflux (GERD) N Cancer N Stroke N Asthma N Allergies Y High Cholesterol N Hepatitis N Liver Disease N Headaches N Osteoporosis N Heart Failure N Gynecological History Statement/Question Response Flow Heavy Date of LMP 01/08/2025 Menses Monthly Y Duration of Flow (days) 5 Current Control Method None LMP Definite Obstetrics History GPAL:G 2 P 2 0 0 2 Type Value Full Term 2 Induced 0 Spontaneous 0 Premature 0 Living 2 Total 2 Immunizations Vaccine Type Date Status Note Provider Nam e and Address Organization Details Recorded Time COVID-19, mRNA, LNP-S, PF, 30 mcg/0.3 mL dose 09/30/2020 completed Shady Allison MA null, [place] - [facility] 05/09/2024 08:54:20 COVID-19, mRNA, LNP-S, PF, 30 mcg/0.3 mL dose 10/26/2020 completed Shady Allison [place] [facility] 05/09/2024 08:54:20 COVID-19, mRNA, LNP-S, PF, 30 mcg/0.3 mL dose 06/24/2021 completed JAMES [place] [facility] 05/09/2024 08:54:20 COVID-19, mRNA, LNP-S, bivalent, PF, 30 mcg/0.3 mL dose 10/30/2022 [place] [facility] 05/09/2024 08:54:20 COVID-19, mRNA, LNP-S, PF, 50 mcg/0.5 mL 06/21/2023 [place] [facility] 05/09/2024 08:54:20 IG 10/25/2012 [place] [facility] 05/09/2024 08:54:20 Influenza, split virus, trivalent, PF 04/27/2015 [place] [facility] 05/09/2024 08:54:20 Influenza, split virus, quadrivalent, PF 05/06/2018 [place] [facility] 05/09/2024 08:54:20 Influenza, split virus, quadrivalent, PF 05/16/2021 [place] [facility] 05/09/2024 08:54:20 Influenza, split virus, quadrivalent, PF 06/21/2023 [place] [facility] 05/09/2024 08:54:20 influenza, unspecified formulation 05/08/2024 [place] [facility] 05/09/2024 08:55:24 COVID-19, mRNA, LNP-S, PF, 50 mcg/0.5 mL 05/08/2024 completed [place] [facility] 05/09/2024 08:57:24 Past Encounters Encounter ID Performer Location Encounter Start Date Encounter Closed Date Diagnosis/Indication Diagnosis SNOMED-CT Code Diagnosis ICD10 Code Diagnosis Note [id number] Jeremy Garcia MD [facility] e - [place] [address] [place] [address] 11/17/2023 10:58:48 11/17/2023 12:54:08 Adult health examination 630239644 Z00.01 annual wellness completed. labs ordered fasting. 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 pleased with stability . med refilled. [id number] Jeremy Garcia MD [facility] [employer] [employer] [address] [place] [email or web address] [id number] 12/27/2023 15:38:35 12/27/2023 16:48:31 Acute thoracic back pain 714398792 M54.6 check xray tspine. Acute low back pain 2788 19729 M54.50 check xray LS spine. start prednisone 50mg daily x 5 days. start flexeril 10mg tid prn and PRN norco given. if this persists, P.T. will be needed and possibly MRI Pain of le ft hip joint 8708720718 41453 M25.552 check xray left hip [id number] Jeremy Garcia MD [facility] [employer] [address] [place] [address] 04/02/2024 15:13:50 04/02/2024 16:02:49 Acute bronchitis 35152432 J20.9 Start Levaquin 500 mg daily x7 days Cough 54864924 R05.9 Prescripti on for generic Tussionex cough syrup 1 tsp every 12 hours for persistent aggressive cough also add albuterol HFA inhaler to use as directed [id number] Jeermy Garcia MD [facility] [employer] [address] [employer] [address] 12/31/2024 16:13:18 12/31/2024 16:54:35 Body mass index 20-24 - normal 433029835 Z68.24 Acute bronchitis 5961118 2 J20.9 Start Z-Damon and prednisone 40 mg daily for 5 days and albuterol inhaler [id number] Jeremy Garcia MD [facility] [employer] [address] [place] [address] 01/21/2025 11:32:01 01/21/2025 12:32:35 Adult health examination 439441110 Z00.01 annual wellness completed. labs ordered fasting. Mixed anxi ety and depressive disorder 251844145 F41.8 very stable on SSRI therapy. Lexapro 20 mg daily. Pleased with stability . med refilled. Cholesterol screening 27 5761228 Z13.220 Diabetes m ellitus screening 293817956 Z13.1 Thyroid di sorder screening 952884436 Z13.29 Long-term drug therapy 802438991 Z79.899 Body mass index 20-24 - normal 526752271 Z68.23 Screening mammography 24 252057 Z12.31 Family his tory of cancer of colon 073294047 Z80.0 October 07, 2020 last colonoscop y repeat 5 years Health Concerns Section Related Observation LastModified by Organization Detai ls LastModified Time None Recorded Concern Status LastModified by Organization Details LastModified Time None Recorded Advance Directives Directive N: Payers Insurance Date Sequence Insurance Name Policy Number Policy Estrada Covered Member ID Estrada Member ID Guarantor Name 01/18/2025 [id number] Ilya Broussard [id number] April Broussard 03/20/2024 1 [facility] April Broussard [id number] April Broussard 11/17/2023 1 *SELF PAY* Me jenni Broussard Notes Date Note Type Note Provider Name and Address Organization Details Recorded Time 11/17/2023 text/html Anxiety/Depressi onRepo rted bypatient.Quality:symp toms improved Severity:denies suicidal ideations; able to maintain relationships; does not interfere with activities of daily living Duration:stablizing Context:no major life stressors Modifying Factors:medications as directed Associated Symptoms:denies homicidal ideations; no significant weight gain; no significant weight loss; no visual/auditory hallucinations; no delusions; no shortness of breath; mood good; no anxiety; no crying spells; no panic; no isolation; sleeping well; appetite good; energy good; no apathy; maintaining functionality EVELIN Ortega Attn: [employer],[address] [place], [place], [address] [place] [address], [facility] 11/20/2023 00:43:46 12/27/2023 text/html Back PainReporte d bypatient.Location:jhoan n is not radiating; lower thoracic and upper lumbar Severity:worsening;sev ere (8-10);interference with sleep Duration:acute Onset/Timing:first episode Aggravating Factors:movement/posit ioning;twisting;flexin g back;extending back Associated Symptoms:no fever; no weak limbs; no numbness of the legs/feet; no tingling; no incontinence; no shortness of breathNotes:Low back pain, Pt. states that it started to hurt yesterday pt. has tried advil states that it helped some, has tried ice compress states that its more like a sharp pain when she moves and other then that it more of apt. states that when it happened she heard 3 popping sounds followed by pain EVELIN Ortega Attn: Accounting,[address] [facility], [place], [place], [address] [place] [address], [facility] 01/19/2024 10:50:58 04/02/2024 text/html Upper Respirator y SymptomsReported bypatient.Location:[facility] Quality:productive cough;colored phlegm;congested Severity:no pain Duration:symptoms lasting over 2 weeks Context:no sick contacts; no foreign travel; non-smoker Associated Symptoms:green sputumNotes:Patient is here for persistent congestion and cough states that she is having a wet cough, coughing up light green mucus after recent upper respiratory infection, no chest pain or troubles breathing. States that she is very fatigue as well as having some brain fog going on, no headaches EVELIN Ortega Attn: Accounting,[address] [facility], [place], [address], [facility] 04/15/2024 21:19:50 12/31/2024 text/html Upper Respirator y SymptomsReported bypatient.Location:hea d; chest; throat Quality:productive cough;colored phlegm;congested Severity:moderate Duration:onset within the last week Onset/Timing:sudden Context:no sick contacts Modifying Factors:OTC medication Associated Symptoms:yellow sputum;fatigue;sore throat EVELIN Ortega Attn: Accounting,[address] [facility], [place], [address], [place] 01/13/2025 18:55:54 OBGyn Episode No OBEpisode recorded.
--- OUTSIDE RECORDS SUMMARY | 2025-01-30 08:49 | XMS_ITS | Referral Summary ---
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 Phone Svetlana Peters Primary Care [...] 01/14/2015 Allergic rhinitis due to pollen 01/14/2015 Social History Tobacco Use Types Packs/Day Years Used Date Smoking Tobacco: Never Comments Unknown Sex and Gender Information Value Date Recorded Sex Assigned at Not on file Legal Sex Female 6:26 AM [employer] Gender Identity Not on file Sexual Orientation Not on file Last Filed Vital Signs Vital Sign Reading Time Taken Comments Blood Pressure 117/78 09/07/2023 2:05 PM [employer] Pulse 69 09/07/2023 2:05 PM [employer] Temperature 36.8 C (98.3 F) 09/07/2023 2:05 PM [employer] Respiratory Rate 18 09/07/2023 2:05 PM [employer] Oxygen Saturation 97% 09/07/2023 2:05 PM [employer] Inhaled Oxygen Concentration - - Weight 80.7 kg (177 lb 14.4 oz) 09/07/2023 2:05 PM [employer] Height 177.8 cm (5' 10) 09/07/2023 2:05 PM [employer] Body Mass Index 25.53 09/07/2023 2:05 PM [employer] Plan of Treatment Not on file Insurance [facility] CHOICE PLUS [facility] CHOICE PLUS Care Teams Plastering Contractor Relationship Specialty Start Date End Date Svetlana Peters PA PCP - General Physician Community Coordinator 09/07/23
--- OUTSIDE RECORDS SUMMARY | 2025-01-30 08:50 | XMS_ITS | Continuity of Care Document ---
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 [address], [place], [place], [address] [place] [address], . tel:[phone] Referring Provider: Shannan Magana [address], [place], [address]. tel:[phone] Family History Family Member Type Diagnosis Age At Onset No Information Payers Payer name Insurance type Covered democrat ID Authoriza tion(s) [facility] [id number] Social History Type Description Quantity Date Captured Comments Sex Female Smoking Status No Information Chief Complaint And Reason For Visit No Information Reason For Referral Reason For Referral No Information History Of Present Illness Encounter Date Complaint History Of Prese nt Illness No Information Functional Status Date Functional Assessmen t No Information Instructions Date Instruction Additional Infor mation No Information Assessments Type Assessment Date No Information Patient Care Teams Name Effective Dates (start - stop) Status Members No Information
--- OUTSIDE RECORDS SUMMARY | 2025-01-30 08:50 | XMS_ITS | Clinical Summary ---
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 Role Phone Unavailable Primary Care Provider Unavailabl e Social History Tobacco Use Types Packs/Day Years Used Date Smoking Tobacco: Never Assessed Comments Unknown Sex and Gender Information Value Date Recorded Sex Assigned at Not on file Legal Sex Female 7:49 PM CDT Gender Identity Not on file Sexual Orientation Not on file Plan of Treatment Health Maintenance Due Date Last Done Comments Cervical Cancer Screening Pa p Smear (Age 30 to 64) Every 3 Years 1981 Annual Physical 01/24/1984 Hepatitis C 1999 DTaP, Tdap and Td Vaccines ( 1 - Tdap) 01/24/2000 Hepatitis B Vaccines (1 of 3 - 19+ 3-dose series) 01/24/2000 Cervical Cancer Screening Pa p with HPV Testing (Age 30 to 64) Every 5 Years 2011 Cervical Cancer Screening with HPV 2011 Mammogram Screening 2021 COVID-19 Vaccine ( - 2023-2 5 season) 2024 HPV Vaccines Aged Out No longer eligi ble based on patient's age to complete this topic Meningococcal B Vaccine Aged Out No l onger eligible based on patient's age to complete this topic Meningococcal Vaccine Aged Out No liat prudencio eligible based on patient's age to complete this topic Pneumococcal Vaccine: Pediat rics (0 to 5 Years) and At-Risk Patients (6 to 49 Years) Aged Out No longer eligible b ased on patient's age to complete this topic RSV Immunizations Under 20 Months Aged Out No longer eligible based on patient's age to complete this topic
== END 2025-01-30 08:42 | disposition home or self-care (01) ==
LOC: CHSIMG 08:43
PROVIDERS: PCP Physician Assistant; Visit Provider Physician Assistant
DX: Z12.31 Encounter for screening mammogram for malignant neoplasm of breast (principal)
CPT/HCPCS: 77063; 77067

== ENCOUNTER 2025-06-05 08:54 | Outpatient (CLI) | payer OTHER, SELFPAY ==
--- NOTE | ~2025-06-05 | XR_ITS ---
EXAMINATION: XR foot LT min 3V, 06/05/2025 8:57 C CONSULTANT HISTORY: Unspecified injury of left foot, initial encounter COMPARISON: No comparisons available. Findings: No acute fracture or malalignment. No significant degenerative changes. Soft tissues unremarkable. Impression: No acute fracture or malalignment. Reviewed, dictated and finalized at location P. C CONSULTANT Impression: No acute fracture or malalignment.
== END 2025-06-05 08:55 | disposition home or self-care (01) ==
LOC: MICIMG 08:55
PROVIDERS: PCP Physician Assistant; Visit Provider Physician Assistant
DX: S99.922A Unspecified injury of left foot, initial encounter (principal); X58.XXXA Exposure to other specified factors, initial encounter
CPT/HCPCS: 73630